=== PATIENT | male | born 1990 | race African-American/Black ===

== ENCOUNTER 2018-12-04 16:06 | Emergency (ER) | payer OTHER ==
[2018-12-04] MEDS ORDERED: NS 1,000 ML IV ONE (16:31)
--- NOTE | 2018-12-04 17:10 | EDPHY ---
H & P Stated Complaint: LOC and lower lip laceration after inhaling hydrogen sulfide gas Time Seen by Provider: 12/04/18 16:28 HPI/ROS: CHIEF COMPLAINT: Syncope following hydrogen sulfide exposure HISTORY OF PRESENT ILLNESS: This is a 27-year-old male who was working at a lab , cleaning equipment. Patient states he took a container and started to wash it out. When he put it in the sink and started running water into the container he immediately smelled a strong smell of hydrogen sulfide. He turned away from the smell and had a syncopal episode. He denies feeling any chest pain, palpitations, or shortness of breath prior to the syncopal episode. He denies any eye tearing, respiratory complaints, choking, wheezing, or shortness of breath. Patient reports otherwise feeling well prior to this event. Today's his 4th day at this job. He was wearing a lab coat and gloves. He did not have on a mask and he was not under a bloom. Patient denies a past medical history of syncope. No history of arrhythmias. He denies a headache, chest pain, or shortness of breath currently. Denies any nausea vomiting. Denies any eye pain. He does have a small laceration under his lip where he struck the floor. REVIEW OF SYSTEMS: A comprehensive 10 system review of systems was reviewed and is otherwise negative aside from elements mentioned in the history of present illness and medical decision making. PAST MEDICAL HISTORY: Negative. SOCIAL HISTORY: No alcohol or illicit drugs. VITAL SIGNS Reviewed by me. Vital signs: 143/84, 78, 18, 36.7. O2 sat 98% on room air. GENERAL: Well-developed, well-nourished, resting comfortably in no respiratory distress. The room has a strong smell of rotten eggs. HEENT: Head is atraumatic. Face: Eyes: No icterus, no injection. SLAVA. EOMI. 0.5 cm laceration just under the lower lip running parallel along the vermilion border. Mouth: Ecchymosis on inner lower lip, swelling, and small laceration. No erythema or lesions. Neck: supple with no adenopathy. LUNGS: Clear to auscultation bilaterally, no wheezes, rhonchi or rales. CARDIAC: Regular rate and rhythm, no rubs, murmurs or gallops. ABDOMEN: Soft, nontender, nondistended, bowel sounds normal. BACK: No CVA tenderness. EXTREMITIES: No trauma. No edema. Range of motion is normal throughout. NEURO: Alert and oriented, cranial nerves 2-12 are intact. Motor strength 5/ 5 throughout. No numbness or tingling. No headache. No gait instability. SKIN: Warm and dry, no rash. PSYCHIATRIC: Normal mentation, no agitation. - Personal History Current Tetanus/Diphtheria Vaccine: Unsure Current Tetanus Diphtheria and Acellular Pertussis (TDAP): Unsure - Medical/Surgical History Hx Asthma: No Hx Chronic Respiratory Disease: No Hx Diabetes: No Hx Cardiac Disease: No Hx Renal Disease: No Hx Cirrhosis: No Hx Alcoholism: No Hx HIV/AIDS: No Hx Splenectomy or Spleen Trauma: No Other PMH: Denies - Social History Smoking Status: Never smoked Constitutional: Initial Vital Signs Temperature (C) 36.6 C 12/04/18 16:14 Heart Rate 78 12/04/18 16:14 Respiratory Rate 16 12/04/18 16:14 Blood Pressure 143/84 H 12/04/18 16:14 O2 Sat (%) 98 12/04/18 16:14 O2 Delivery Mode Room Air O2 (L/minute) 4 Allergies/Adverse Reactions: No Known Allergies Allergy (Verified 12/04/18 16:18) Home Medications: Medication Instructions Recorded Penicillin V Potassium 500 mg PO TID #15 tablet 12/04/18 Medical Decision Making - Diagnostics EKG Interpretation: 12-LEAD EKG: Please see the full report in [facility]. My interpretation: Normal sinus rhythm Imaging Results: Imaging Impressions Chest X-Ray 12/04/18 16:31 Impression: Normal. Imaging: Discussed imaging studies w/ joiner helper Radiologist ED Course/Re-evaluation: This is a 27-year-old male who presents following a syncopal episode in the setting of inhaling hydrogen sulfide fumes. Patient is here with a co-worker who is the vehicle safety inspector at the patient's place of employment. She reports that after the patient had a syncopal episode he was immediately moved moved from the room. At that time, a hydrogen sulfide alarm indicated the hydrogen sulfide level was between 10 and 20 parts per million. Patient's syncopal episode occurred approximately 3:20 p.m.. On arrival to the emergency department poison Center was contacted. Patient's clothing was removed. Patient was advised to wash his hands and face in any other exposed skin which may have fluid on it. He did this. Case #[id number]. Recommendations from Dr. Benitez at the Poison Center: Hydrogen sulfide can result in acidosis. There is a potential for also hydrocarbons to have been present as well. These would cause sensitization of the myocardium. Recommendations included CBC, chemistries, lactic acid, chest x -ray, EKG, troponin. Patient should be observed for 6 hr for any signs of respiratory distress, cough, shortness of breath, increased respiratory rate. Patient's laboratory evaluation emergency department is normal. Troponin was negative. Lactic acid is 0.8. Procedure: Laceration repair. The 0.5 cm laceration on the lower lip was anesthetized using xylocaine with epinephrine The wound was cleaned and irrigated per nursing and tech documentation. Laceration is through and through with communication to the mucosal surface as evidence by the patient tasting the irrigant fluid. Inspection of the be you cool surface demonstrates a very small, punctate break in the mucosa. This was not sutured. External laceration was then draped and explored. No open communication with the mouth evidence during examination. The wound was repaired with 2 simple interrupted 6 0 Ethilon sutures. The wound repair was simple. The procedure was performed by myself. Patient is aware the laceration will have a scar. Patient was placed on penicillin to cover for external lip laceration which is communicating with the oral surface. Patient was observed until 9:30 p.m.. He remains with no cough, no shortness of breath, no hypoxemia. youth nutritional monitor has been normal sinus throughout. Neurologically the patient is alert, oriented, not complaining of a headache. He has had no numbness or tingling in his arms or legs. He is not encephalopathic. Patient was discharged home. Please see the discharge instructions regarding precautions. Patient feels comfortable being discharged. He will follow up as needed. He understands to return to have sutures removed in 5-7 days. Differential Diagnosis: Differential diagnosis for the patient's presenting complaint was considered including but not limited to syncope as a result of hydrogen sulfide, acidosis, acute respiratory distress, acute pulmonary edema, arrhythmia, exposure to hydrocarbons with resultant myocardial sensitization, and vasovagal syncope. - Data Points Laboratory Results: 12/04/18 12/04/18 12/04/18 16:49 16:48 16:47 POC Sodium 144 mEq/L mEq/L (135-145) POC Potassium 3.5 mEq/L mEq/L (3.3-5.0) POC Chloride 106.0 mEq/L mEq/L (97-110) POC Total CO2 26 mEq/L mEq/L (22-31) POC BUN 14 mg/dL mg/dL (7-23) POC Creatinine 1.1 mg/dL mg/dL (0.7-1.3) POC Glucose 92 mg/dL mg/dL (70-100) POC Lactic Acid Dom 0.8 mmol/L mmol/L (0.7-2.1) POC Calcium 9.4 mg/dL mg/dL (8.5-10.4) POC Troponin I 0.01 ng/mL ng/mL (0.00-0.08) Medications Given: Discontinued Medications Sodium Chloride (Ns) 1,000 mls @ 0 mls/hr IV ONCE ONE; Wide Open PRN Reason: Protocol Stop: 12/04/18 16:32 Last Admin: 12/04/18 16:50 Dose: 1,000 mls Penicillin V Potassium (Pen Vk 250 Mg Prepack#6) 1 btl TAKEHOME EDNOW ONE PRN Reason: Protocol Stop: 12/04/18 21:11 Last Admin: 12/04/18 21:25 Dose: 1 btl Point of Care Test Results: CBC CBC Collection Date 12/04/18 CBC Collection Time 16:40 WBC 7.02 RBC 5.57 HGB 15.2 HCT 46.9 PLT 200 Neut # 3.68 Neut 52.4 LYMPH # 2.70 LYMPH 38.5 MCV 84.2 Chemistry 12/04/18 12/04/18 16:48 16:47 POC Sodium 144 mEq/L mEq/L (135-145) POC Potassium 3.5 mEq/L mEq/L (3.3-5.0) POC Chloride 106.0 mEq/L mEq/L (97-110) POC Total CO2 26 mEq/L mEq/L (22-31) POC BUN 14 mg/dL mg/dL (7-23) POC Creatinine 1.1 mg/dL mg/dL (0.7-1.3) POC Glucose 92 mg/dL mg/dL (70-100) POC Calcium 9.4 mg/dL mg/dL (8.5-10.4) POC Troponin I 0.01 ng/mL ng/mL (0.00-0.08) Blood Gas/Lactic Acid-Venous 12/04/18 16:49 POC Lactic Acid Dom 0.8 mmol/L mmol/L (0.7-2.1) Departure - Departure Disposition: Home, Routine, Self-Care Clinical Impression: Exposure to hydrogen sulfide, Laceration Syncope Qualifiers: Syncope type: unspecified Qualified Code(s): R55 - Syncope and collapse Condition: Good Instructions: Penicillin V (By mouth), Laceration (ED), Syncope (ED), Smoke Inhalation (ED) Additional Instructions: Keep the laceration on your lip clean and dry. Clean suture line with a mixture of hydrogen peroxide and water. Apply a thin layer of antibiotic cream. Suture removal in 5-7 days. Watch for signs of infection. No soaking wound in water. Showers are ok. No swimming until sutures are removed. Please take antibiotic as directed. Penicillin 500 mg by mouth 3 times a day for the next 5 days For the inhalation, we have watched you for signs of lung inflammation. Be sure you are seen immediately if you begin to develop a cough, shortness of breath, chest pain, wheezing, or other concerns. Okay to return to work tomorrow if you desire. Referrals: NONE *PRIMARY CARE P,. [Primary Care Provider] - As per Instructions Prescriptions: Penicillin V Potassium 500 mg PO TID #15 tablet
[2018-12-04] MEDS ORDERED: PENICILLIN VK 250MG PREPACK#6 BTL TAKEHOME ONE (21:10)
[2018-12-04 21:30] VITALS: BP 116/79
--- NOTE | 2018-12-04 21:47 | CPEKG ---
Test Reason : OPEN Blood Pressure : / mmHG Vent. Rate : 066 BPM Atrial Rate : 068 BPM P-R Int : 140 ms QRS Dur : 087 ms QT Int : 379 ms P-R-T Axes : 066 065 043 degrees QTc Int : 398 ms Sinus rhythm Confirmed by Nikki Alvarenga ([id number]) on 12/04/2018 9:46:47 PM Referred By: Nikki Alvarenga Confirmed By:Nikki Alvarenga
== END 2018-12-04 21:29 | disposition home or self-care (01) ==
LOC: CED 16:06
PROC: 0CQ1XZZ Repair Lower Lip, External Approach (ICD-10-PCS; principal; 2018-12-04)
DX: R55 Syncope and collapse (principal); T59.6X1A Toxic effect of hydrogen sulfide, accidental (unintentional), initial encounter; S01.511A Laceration without foreign body of lip, initial encounter; E86.9 Volume depletion, unspecified
CPT/HCPCS: 71046-PO; 80048-ER; 83605-ER; 84484-ER; 96360-ER